=== PATIENT | female | born 1930 | race Caucasian/White ===

== ENCOUNTER 2019-03-08 14:03 | Observation (INO) ==
--- NOTE | 2019-03-08 14:22 | Emergency Department Note ---
ED Disposition Clinical Impression: Weakness generalized, Hypertension, Diabetes mellitus type 2 in obese, Hyperlipidemia, Peripheral vascular disease, Peripheral neuropathy, Depression, Left bundle branch block (LBBB) Disposition: Admitted as Observation Condition on Discharge: Serious - Critical Care Critical Care Time: No Attestation: On , the high probability of a clinically significant, sudden or life threatening deterioration of the following system(s) required my full and direct attention, intervention and personal management. The time I documented below is in addition to time spent performing reported procedures but includes the following listed in this critical care notation. Medical Decision Making - Medical Records Medical records reviewed: Yes: I reviewed the patient's medical records. - Wilian Inquiry Pt receiving controlled substance: No Vital Signs: 03/08/19 14:03 03/08/19 14:50 03/08/19 15:50 Temperature 98.7 F Temperature Source Oral Pulse Rate [Left Radial] 87 69 72 Respiratory Rate 20 Blood Pressure [Right Arm] 211/93 H 180/78 H 151/72 H Blood Pressure Mean [Right Arm] 132 112 98 Blood Pressure Source [Right Arm] Automatic Cuff Blood Pressure Position [Right Arm] Sitting Sitting Sitting 02 Sat by Pulse Oximetry 98 94 L Oxygen Delivery Method Room Air Room Air - Lab Data Lab Results 03/08/19 14:16: WBC 8.2, RBC 3.91 L, Hgb 12.6, Hct 40.1, MCV 102.7 H, MCH 32.1 H , MCHC 31.3 L, RDW 12.6, Plt Count 164, MPV 9.2, Neut % (Auto) 68.8, Lymph % (Auto) 22.2, [place] % (Auto) 6.6, Eos % (Auto) 2.0, Baso % (Auto) 0.3, Neut # (Auto) 5.6, Lymph # (Auto) 1.8, [place] # (Auto) 0.5, Eos # (Auto) 0.2, Baso # (Auto) 0.0 03/08/19 14:16: Sodium 143, Potassium 3.7, Chloride 104, Carbon Dioxide 30, Anion Gap 12.7, BUN 16, Creatinine 0.62, Estimated Creat Clear 36, Estimated GFR 91, Est GFR ( Amer) 110, Glucose 198 H, Calcium 9.2, Total Bilirubin 0.5, AST 7 L, ALT 6 L, Alkaline Phosphatase 44 L, Troponin I < 0.02, Total Protein 7.3, Albumin 3.4, Globulin 3.9 H, Albumin/Globulin Ratio 0.9 L 03/08/19 15:15: Urine Color Yellow, Urine Appearance Clear, Urine pH 5.5, Ur Specific [place] 1.025, Urine Protein Negative, Urine Glucose (UA) Negative, Urine Ketones Negative, Urine Blood Negative, Urine Nitrate Negative, Urine Bilirubin Negative, Urine Urobilinogen 0.2, Ur Leukocyte Esterase Negative, Urine RBC None, Urine WBC Occasional, Ur Squamous Epith Cells None, Urine Bacteria Trace 03/08/19 15:25: Lactate 1.9 Result diagrams: 03/08/19 14:16 03/08/19 14:16 Orders (Tests/Meds): ED MEDICATIONS Discontinued Medications Generic Name Dose Route Start Last Admin Trade Name Freq PRN Reason Stop Dose Admin Ondansetron HCl 4 mg 03/08/19 14:41 03/08/19 14:42 Zofran 4mg/2ml Vial IV 03/08/19 14:42 4 mg ONCE ONE Administration ORDERS Category Date Time Status Blood Culture Stat Micro 03/08/19 15:35 Received EKG Request [ECG Request by /Lion] Stat Y 03/08/19 14:14 Ordered - CT Data CT Scan: Head Time Received: 15:[address] Reviewed: Yes: I have reviewed the patient's CT results Preliminary Findings: Normal/NAD - ECG Data Tracing #1 I reviewed this ECG and interpreted as documented below: Normal Sinus Rhythm: Yes (rate of 72.) Conduction abnormalities present: LBBB General Adult HPI - General Chief complaint: Weakness Stated complaint: Weakness Time Seen by Provider: 03/08/19 14:10 Mode of Arrival: EMS Source of Information: Patient, EMS - History of Present Illness HPI narrative: 88-year old female brought in by EMS per family's request due to and and lethargy for the past 2 days. Onset (ago): day(s) (2) Severity: moderate Consistency: constant Relieving factors: none Exacerbating factors: none Associated symptoms: confusion, headaches - Related Data Home Medications Medication Instructions Recorded Confirmed Aspirin/Dipyridamole [Aggrenox 1 tab PO DAILY 03/08/19 03/08/19 25mg-200mg Capsule] Duloxetine HCl 30 mg PO DAILY 03/08/19 03/08/19 Gabapentin [Gabapentin 300mg Cap] 300 mg PO BID 03/08/19 03/08/19 Glyburide/Metformin HCl 1 tab PO DAILY 03/08/19 03/08/19 [Glyburide-Metformin 5-500 mg] Losartan Potassium 100 mg PO DAILY 03/08/19 03/08/19 Metoprolol Succinate [Toprol XL 50 mg PO DAILY 03/08/19 03/08/19 50mg Tablet] Rosuvastatin Calcium 10 mg PO DAILY 03/08/19 03/08/19 levETIRAcetam [Levetiracetam] 500 mg PO BID 03/08/19 03/08/19 Allergies Allergy/AdvReac Type Severity Reaction Status Date / Time ASPIRIN Allergy Unknown "BLEEDING" Uncoded 05/06/17 14:33 From CELEBREX Allergy Unknown BLEEDING Uncoded 05/06/17 14:33 From MACROBID Allergy Unknown NA-NAUSEA Uncoded 05/06/17 14:33 From PAXIL Allergy Unknown NA-NAUSEA/V Uncoded 05/06/17 14:33 OMITING [facility] History - Hepatitis A Screen Drug use history?: No Attestation statement:: This patient has been screened for Hepatitis A risk factors. I have reviewed the patient's past medical history: Yes Medical History: Reports:: Diabetes Mellitus Type 2, Hypertension Other Surgeries: Yes: Hysterectomy-Total Family Hx:: Unable to obtain ROS Obtained: Yes other (Family had to assist) - Constitutional Constitutional: Reports anorexia, Reports fatigue, Reports lethargy, Reports malaise - Eyes Eyes: Reports system reviewed and no additional complaints, except as docu - ENT Ears, Nose, Mouth, and Throat: Reports system reviewed and no additional complaints, except as docu - Cardiovascular Cardiovascular: Reports system reviewed and no additional complaints, except as docu - Respiratory Respiratory: Yes system reviewed and no additional complaints, except as docu - Gastrointestinal Gastrointestingal: Reports: system reviewed and no additional complaints, except as docu - Genitourinary Male Genitourinary: Reports system reviewed and no additional complaints, except as docu Female Genitourinary: Reports system reviewed and no additional complaints, except as docu - Musculoskeletal Musculoskeletal: Reports system reviewed and no additional complaints, except as docu - Integumentary/Breasts Skin/Breast: Reports system reviewed and no additional complaints, except as docu - Neurologic Neurologic: Reports abnormal gait, Reports abnormal speech, Reports confusion - Endocrine Endocrine: Reports system reviewed and no additional complaints, except as docu - Hematologic/Lymphatic Henatologic/Lymphatic: Reports system reviewed and no additional complaints, except as docu - Allergic/Immunologic Allergic/Immunologic: Reports system reviewed and no additional complaints, except as docu Physical Exam - General General appearance: lethargic - Head Head exam: atraumatic, normocephalic, normal inspection - Eye Eye exam: Present: normal appearance, PERRL, EOMI - ENT ENT exam: Present: normal exam, normal oropharynx, mucous membranes moist - Neck Neck exam: Present: normal inspection, full ROM, trachea midline. Absent: meningismus, lymphadenopathy - Chest Chest inspection: Present: normal inspection, symmetric chest wall rise. Absent: tenderness - Respiratory Respiratory exam: Present: normal lung sounds bilaterally. Absent: respiratory distress - Cardiovascular Cardiovascular exam: Present: regular rate, normal rhythm, normal heart sounds. Absent: JVD - Abdominal Exam Abdominal exam: Present: soft, normal bowel sounds. Absent: distention, tenderness, guarding - Extremities Exam Extremities exam: Present: normal inspection, full ROM, normal capillary refill. Absent: calf tenderness - Back Exam Back exam: Present: normal inspection. Absent: tenderness - Neurological Exam Neurological exam: Present: alert, oriented X3, CN II-XII intact, other (Weakness bilaterally to the lower extremities equal in degree.). Absent: motor sensory deficit - Psychiatric Psychiatric exam: Present: normal affect, normal mood - Skin Skin exam: Present: warm, dry, intact, normal color - Lymphatic Lymphatic Findings: no adenopathy
[2019-03-08 14:34] LABS: Basophils % 0.3 % (0.1-2.0); Eosinophils # 0.2 K/mm3 (0.0-0.4); Hematocrit 40.1 % (37.0-47.0); Hemoglobin 12.6 g/dL (12.2-16.2); Lymphocytes # 1.8 K/mm3 (0.7-4.5); Lymphocytes % 22.2 % (10-50); Mean Corpuscular HGB Conc 31.3 g/dL (31.8-35.4); Mean Corpuscular Volume 102.7 fl (81-99); Mean Platelet Volume 9.2 fl (7.4-10.4); Monocytes # 0.5 K/mm3 (0.1-1.0); Monocytes % 6.6 % (1.7-9.3); Neutrophils # 5.6 K/mm3 (1.8-7.8); Neutrophils % 68.8 % (37.0-80.0); Platelet Count 164 K/mm3 (142-424); Red Blood Count 3.91 M/mm3 (4.20-5.40); Red Cell Distribution Width 12.6 % (11.5-17.5); White Blood Count 8.2 K/mm3 (4.8-10.8)
[2019-03-08 14:50] LABS: Alanine Aminotransferase 6 U/L (12-78); Albumin Level 3.4 gm/dL (3.4-5.0); Albumin/Globulin Ratio 0.9 (1.1-1.8); Alkaline Phosphatase 44 U/L (46-116); Anion Gap 12.7 mEq/L (5-15); Aspartate Amino Transferase 7 U/L (15-37); Bilirubin,Total 0.5 mg/dL (0.2-1.0); Blood Urea Nitrogen 16 mg/dL (7-18); Calcium 9.2 mg/dL (8.5-10.1); Carbon Dioxide 30 mmol/L (21.0-32.0); Chloride 104 mmol/L (98-107); Globulin 3.9 gm/dl (1.3-3.2); Glucose 198 mg/dL (74-106); Sodium 143 mmol/L (136-145); Total Protein,Serum 7.3 gm/dL (6.4-8.2)
[2019-03-08 15:25] LABS: Microscopic, Urine URINE MICROSCOPIC (MICROSCOPIC)
[2019-03-08 15:35] LABS: Appearance,Urine CLEAR (Clear); Bilirubin,Urine Negative (Negative); Blood, Urine Negative (Negative); Color,Urine YELLOW (Yellow); Glucose,Urine (UA) Negative (Negative); Ketones,Urine Negative (Negative); Leukocyte Esterase,Urine Negative (Negative); PH,Urine 5.5 (5.0-8.5); Protein,Urine Negative (Negative); Specific Gravity, Urine 1.025 (1.005-1.030); Urobilinogen,Urine 0.2 EU/dl (0.2)
[2019-03-08 16:05] LABS: Bacteria,Urine Trace /lpf; WBC,Urine Occasional #/hpf (0-3)
--- NOTE | 2019-03-08 17:09 | History & Physical Report ---
*Admission Date: 03/08/19 <PeckNaniEdna 03/08/19 17:42> *Chief complaint: weakness <PeckNaniEdna 03/08/19 17:42> *History of present illness: Ms. Nelson is an 88-year-old female with a history of type 2 diabetes mellitus, cerebral vascular disease, depression, peripheral vascular disease, hyperlipidemia, peptic ulcer disease, seizure disorder, and osteopenia who presented to [facility] emergency room with progressive weakness and inability to walk. She has 2 sitters stay with her and they report they have had to lift her from bed to chair and then push her sit/walker in order to move her around in her home. They have noticed a gradual decline in the last 2 weeks with change in her speech, difficulty with swallowing. and sleeping all of the time. She did vomit this a.m. but normally eats well. She is continent of urine and stool. With evaluation in the emergency room blood pressure was found to be elevated. Chest x-ray and CT of the head showed nothing acute. She was admitted for further evaluation and treatment with care management consultation. <Edna Peck 03/08/19 17:42> [facility] History Medical History: Reports:: Diabetes Mellitus Type 2, Hyperlipidemia, Hyper tension, Peripheral Vascular Disease, Seizures, Ulcer (Peptic) <Edna Peck 03/08/19 17:42> *Have you ever received a pneumonia vaccine?: No <Edna Peck 03/08/19 17:42> *Have you received a flu vaccine this season?: No <Edna Peck 03/08/19 17:42> Comment:: Cerebrovascular disorder; BMI 19.9 or less; osteopenia; skin cancers <Edna Peck 03/08/19 17:42> Laterality Cases: Left: Total Hip Replacement, Bilateral: Cataract <Edna Peck 03/08/19 17:42> Other Surgeries: Yes: Colonoscopy, Hysterectomy-Total, Skin Cancer Excision <Edna Peck 03/08/19 17:42> - *Social History Alcohol Intake: never <Edna Peck 03/08/19 17:42> *Occupational Status:: other <Edna Peck 03/08/19 17:42> Household Members: other <Edna Peck 03/08/19 17:42> *Travel in the last 8 weeks: None <Edna Peck 03/08/19 17:42> Family Hx:: Cancer, Coronary Artery Disease, Diabetes, Stroke <Edna Peck 03/08/19 17:42> Review of Systems - Constitutional Reports lack of energy, Reports malaise, Denies fever(s), Denies headache(s) <Edna Peck 03/08/19 17:42> - Eyes Denies change in vision <Edna Peck 03/08/19 17:42> Comments: Wears glasses <Edna Peck 03/08/19 17:42> - ENT Reports difficulty swallowing, Denies ear pain, Denies nasal congestion, Denies sore throat <Edna Peck 03/08/19 17:42> - *Cardiovascular Denies chest pain, Denies shortness of breath, Denies leg swelling <Edna Peck 03/08/19 17:42> - *Respiratory Denies chest congestion, Denies cough, Denies shortness of breath <Edna Peck 03/08/19 17:42> - *Gastrointestinal Reports abdominal pain, Reports vomiting (Once this a.m.), Denies coffee ground vomit, Denies constipation, Denies bright, red blood in stools, Denies nausea <Edna Peck 03/08/19 17:42> - *Genitourinary Denies urinary incontinence <Edna Peck 03/08/19 17:42> - *Musculoskeletal Reports decreased muscle mass, Reports muscle weakness, Denies joint pain <Edna Peck 03/08/19 17:42> Comments: Has not really walked in about 2 weeks. He has taken to sitters to get her out of bed into her wheelchair/walker. They roll around throughout the house for meals and for her to go to the bathroom. <Edna Peck 03/08/19 17:42> - *Neurologic Reports abnormal walking, Reports abnormal speech, Reports confusion, Reports frequent falls, Denies seizure-like activity, Denies seizure-like activity <Edna Peck 03/08/19 17:42> Comments: She has wanted to sleep most of the time. Will go to bed about 9 PM and wake up about 11 in the morning <PeckEdna - 03/08/19 17:42> Meds Home Medications Medication Instructions Recorded Confirmed Type Aspirin/Dipyridamole [Aggrenox 1 tab PO DAILY 03/08/19 03/08/19 History 25mg-200mg Capsule] Duloxetine HCl 30 mg PO DAILY 03/08/19 03/08/19 History Gabapentin [Gabapentin 300mg Cap] 300 mg PO BID 03/08/19 03/08/19 History Glyburide/Metformin HCl 1 tab PO DAILY 03/08/19 03/08/19 History [Glyburide-Metformin 5-500 mg] Losartan Potassium 100 mg PO DAILY 03/08/19 03/08/19 History Metoprolol Succinate [Toprol XL 50 mg PO DAILY 03/08/19 03/08/19 History 50mg Tablet] Rosuvastatin Calcium 10 mg PO DAILY 03/08/19 03/08/19 History levETIRAcetam [Levetiracetam] 500 mg PO BID 03/08/19 03/08/19 History <Aniket Cummings - 03/08/19 18:01> Allergies Allergy/AdvReac Type Severity Reaction Status Date / Time ASPIRIN Allergy Unknown "BLEEDING" Uncoded 05/06/17 14:33 From CELEBREX Allergy Unknown BLEEDING Uncoded 05/06/17 14:33 From MACROBID Allergy Unknown NA-NAUSEA Uncoded 05/06/17 14:33 From PAXIL Allergy Unknown NA-NAUSEA/V Uncoded 05/06/17 14:33 OMITING <Aniket Cummings - 03/08/19 18:01> Exam Vital signs and Labs for Last 24 Hours: Temp Pulse Resp BP Pulse Ox 98 F 77 18 155/85 H 96 03/08/19 17:16 03/08/19 17:16 03/08/19 17:16 03/08/19 17:16 03/08/19 16:58 Laboratory Results - last 24 hr 03/08/19 14:16: WBC 8.2, RBC 3.91 L, Hgb 12.6, Hct 40.1, MCV 102.7 H, MCH 32.1 H , MCHC 31.3 L, RDW 12.6, Plt Count 164, MPV 9.2, Neut % (Auto) 68.8, Lymph % (Auto) 22.2, [place] % (Auto) 6.6, Eos % (Auto) 2.0, Baso % (Auto) 0.3, Neut # (Auto) 5.6, Lymph # (Auto) 1.8, [place] # (Auto) 0.5, Eos # (Auto) 0.2, Baso # (Auto) 0.0 03/08/19 14:16: Sodium 143, Potassium 3.7, Chloride 104, Carbon Dioxide 30, Anion Gap 12.7, BUN 16, Creatinine 0.62, Estimated Creat Clear 36, Estimated GFR 91, Est GFR ( Amer) 110, Glucose 198 H, Calcium 9.2, Total Bilirubin 0.5, AST 7 L, ALT 6 L, Alkaline Phosphatase 44 L, Troponin I < 0.02, Total Protein 7.3, Albumin 3.4, Globulin 3.9 H, Albumin/Globulin Ratio 0.9 L 03/08/19 14:26: TSH 2.82 03/08/19 15:15: Urine Color Yellow, Urine Appearance Clear, Urine pH 5.5, Ur Specific [place] 1.025, Urine Protein Negative, Urine Glucose (UA) Negative, Urine Ketones Negative, Urine Blood Negative, Urine Nitrate Negative, Urine Bilirubin Negative, Urine Urobilinogen 0.2, Ur Leukocyte Esterase Negative, Urine RBC None, Urine WBC Occasional, Ur Squamous Epith Cells None, Urine Bacteria Trace 03/08/19 15:25: Lactate 1.9 <ZoilaAniket angela - 03/08/19 18:01> Temp Pulse Resp BP Pulse Ox 98.7 F 72 20 151/72 H 94 L 03/08/19 14:03 03/08/19 15:50 03/08/19 14:03 03/08/19 15:50 03/08/19 14:50 Laboratory Results - last 24 hr 03/08/19 14:16: WBC 8.2, RBC 3.91 L, Hgb 12.6, Hct 40.1, MCV 102.7 H, MCH 32.1 H , MCHC 31.3 L, RDW 12.6, Plt Count 164, MPV 9.2, Neut % (Auto) 68.8, Lymph % (Auto) 22.2, [place] % (Auto) 6.6, Eos % (Auto) 2.0, Baso % (Auto) 0.3, Neut # (Auto) 5.6, Lymph # (Auto) 1.8, [place] # (Auto) 0.5, Eos # (Auto) 0.2, Baso # (Auto) 0.0 03/08/19 14:16: Sodium 143, Potassium 3.7, Chloride 104, Carbon Dioxide 30, Anion Gap 12.7, BUN 16, Creatinine 0.62, Estimated Creat Clear 36, Estimated GFR 91, Est GFR ( Amer) 110, Glucose 198 H, Calcium 9.2, Total Bilirubin 0.5, AST 7 L, ALT 6 L, Alkaline Phosphatase 44 L, Troponin I < 0.02, Total Protein 7.3, Albumin 3.4, Globulin 3.9 H, Albumin/Globulin Ratio 0.9 L 03/08/19 14:26: TSH 2.82 03/08/19 15:15: Urine Color Yellow, Urine Appearance Clear, Urine pH 5.5, Ur Specific [place] 1.025, Urine Protein Negative, Urine Glucose (UA) Negative, Urine Ketones Negative, Urine Blood Negative, Urine Nitrate Negative, Urine Bilirubin Negative, Urine Urobilinogen 0.2, Ur Leukocyte Esterase Negative, Urine RBC None, Urine WBC Occasional, Ur Squamous Epith Cells None, Urine Bacteria Trace 03/08/19 15:25: Lactate 1.9 <Edna Peck - 03/08/19 17:42> I & O for Last 24 hours: Intake & Output 03/06/19 03/07/19 03/08/19 03/09/19 11:59 11:59 11:59 11:59 Weight 114 lb 7 oz <Aniket Cummings - 03/08/19 18:01> Intake & Output 03/06/19 03/07/19 03/08/19 03/09/19 11:59 11:59 11:59 11:59 Weight 125 lb <Edna Peck - 03/08/19 17:42> Radiology Reports for the Last 24 Hours: Chest x-ray 03/08/2019 IMPRESSION: No acute findings. CT of the head 03/08/2019 IMPRESSION: No acute intracranial finding <Edna Peck 03/08/19 17:42> - Constitutional no acute distress <Edna Peck 03/08/19 17:42> Comments: Lying comfortably on ER stretcher in the emergency room <Edna Peck 03/08/19 17:42> - *Routine HEENT Exam Head: Present: normocephalic, atraumatic <Edna Peck 03/08/19 17:42> Eye: Present: PERRL. Absent: conjunctival icterus, scleral injection, conjunctivae pink <Edna Peck 03/08/19 17:42> ENT: Present: mucous membranes dry <Edna Peck 03/08/19 17:42> Comments: Tongue is coated <Edna Peck 03/08/19 17:42> - *Routine Neck Exam Present: supple, full ROM. Absent: carotid bruit, lymphadenopathy, thyromegaly <Edna Peck 03/08/19 17:42> - *Routine Respiratory Exam Present: CTA bilaterally (Anteriorly and posteriorly) <Edna Peck 03/08/19 17:42> - *Routine Cardiovascular Exam Present: RRR <Edna Peck 03/08/19 17:42> Comments: Monitor shows sinus rhythm in the 70s <Edna Peck 03/08/19 17:42> - *Routine Abdominal Exam Present: soft, normoactive bowel sounds. Absent: tenderness, distended <Edna Peck 03/08/19 17:42> Comments: Thin <Edna Peck 03/08/19 17:42> - *Routine Extremities Exam Present: full ROM. Absent: edema, calf tenderness <Edna Peck 03/08/19 17:42> - *Routine Skin Exam Present: dry, pallor <Edna Peck 03/08/19 17:42> - *Routine Neurological Exam Present: alert, CN II-XII intact, moving all extremities. Absent: facial asymmetry, normal speech (Speech is slow with poor enunciation) <Edna Peck 03/08/19 17:42> Assessment and Plan (1) Hypertension Current visit: Yes Status: Acute Category: Medical Code(s): I10 - Essential (primary) hypertension (2) Cerebrovascular disease Current visit: Yes Status: Chronic Category: Medical Code(s): I67.9 - Cerebrovascular disease, unspecified (3) Somnolence Current visit: Yes Status: Acute Category: Medical Code(s): R40.0 - Somnolence (4) Dysphagia Current visit: Yes Status: Acute Category: Medical Code(s): R13.10 - Dysphagia, unspecified (5) Dysarthria Current visit: Yes Status: Acute Category: Medical Code(s): R47.1 - Dysarthria and anarthria (6) Depression Current visit: Yes Status: Chronic Category: Medical Code(s): F32.9 - Major depressive disorder, single episode, unspecified (7) Diabetes mellitus type 2 in obese Current visit: Yes Status: Chronic Category: Medical Code(s): E11.69 - Type 2 diabetes mellitus with other specified complication; E66.9 - Obesity, unspecified (8) Hyperlipidemia Current visit: Yes Status: Chronic Category: Medical Code(s): E78.5 - Hyperlipidemia, unspecified (9) Peripheral neuropathy Current visit: Yes Status: Chronic Category: Medical Code(s): G62.9 - Polyneuropathy, unspecified (10) Peripheral vascular disease Current visit: Yes Status: Chronic Category: Medical Code(s): I73.9 - Peripheral vascular disease, unspecified (11) Weakness generalized Current visit: Yes Status: Chronic Category: Medical Code(s): R53.1 - Weakness <Aniket Cummings - 03/08/19 18:01> (1) Hypertension Current visit: Yes Status: Acute Category: Medical Code(s): I10 - Essential (primary) hypertension (2) Cerebrovascular disease Current visit: Yes Status: Chronic Category: Medical Code(s): I67.9 - Cerebrovascular disease, unspecified (3) Somnolence Current visit: Yes Status: Acute Category: Medical Code(s): R40.0 - Somnolence (4) Dysphagia Current visit: Yes Status: Acute Category: Medical Code(s): R13.10 - Dysphagia, unspecified (5) Dysarthria Current visit: Yes Status: Acute Category: Medical Code(s): R47.1 - Dysarthria and anarthria (6) Depression Current visit: Yes Status: Chronic Category: Medical Code(s): F32.9 - Major depressive disorder, single episode, unspecified (7) Diabetes mellitus type 2 in obese Current visit: Yes Status: Chronic Category: Medical Code(s): E11.69 - Type 2 diabetes mellitus with other specified complication; E66.9 - Obesity, unspecified (8) Hyperlipidemia Current visit: Yes Status: Chronic Category: Medical Code(s): E78.5 - Hyperlipidemia, unspecified (9) Peripheral neuropathy Current visit: Yes Status: Chronic Category: Medical Code(s): G62.9 - Polyneuropathy, unspecified (10) Peripheral vascular disease Current visit: Yes Status: Chronic Category: Medical Code(s): I73.9 - Peripheral vascular disease, unspecified (11) Weakness generalized Current visit: Yes Status: Chronic Category: Medical Code(s): R53.1 - Weakness <Edna Peck - 03/08/19 17:05> - Assessment and plan all Dx Assessment and Plan for all problems:: Patient seen and examined. Concur with above assessment and plan. SHe will need consideration for LTC placement. <Aniket Cummings - 03/08/19 18:01> Some of home meds have been ordered to include sliding scale insulin before meals and at bedtime. Speech therapy, Occupational Therapy, and physical therapy consults. Care management consult as well. Will monitor blood pressure. <Edna Peck - 03/08/19 17:42>
[2019-03-09 07:11] LABS: Basophils % 0.4 % (0.1-2.0); Eosinophils # 0.2 K/mm3 (0.0-0.4); Eosinophils % 2.4 % (0.1-12.0); Hematocrit 34.4 % (37.0-47.0); Lymphocytes # 2.7 K/mm3 (0.7-4.5); Lymphocytes % 33.4 % (10-50); Mean Corpuscular HGB Conc 32.1 g/dL (31.8-35.4); Mean Corpuscular Volume 99.8 fl (81-99); Mean Platelet Volume 9.1 fl (7.4-10.4); Monocytes # 0.6 K/mm3 (0.1-1.0); Monocytes % 8.1 % (1.7-9.3); Neutrophils # 4.4 K/mm3 (1.8-7.8); Neutrophils % 55.7 % (37.0-80.0); Platelet Count 151 K/mm3 (142-424); Red Blood Count 3.45 M/mm3 (4.20-5.40); Red Cell Distribution Width 12.6 % (11.5-17.5); White Blood Count 7.9 K/mm3 (4.8-10.8)
[2019-03-09 07:32] LABS: Hemoglobin 11.1 g/dL (12.2-16.2)
[2019-03-09 07:35] LABS: Albumin Level 3.2 gm/dL (3.4-5.0); Anion Gap 13.7 mEq/L (5-15); Bilirubin,Total 0.5 mg/dL (0.2-1.0); Calcium 8.7 mg/dL (8.5-10.1); Chol/HDL Ratio 2.7 (1-3.5); Globulin 3.3 gm/dl (1.3-3.2); Phosphorous 3.7 mg/dL (2.4-4.9); Total Protein,Serum 6.5 gm/dL (6.4-8.2)
--- NOTE | 2019-03-09 08:23 | Progress Note ---
<Edna Peck - Last Filed: 03/09/19 08:18> Internal Medicine - PN: Subj *Date: 03/09/19 *Time: 08:18 Interval history: Per nursing: Patient did choke on some of her food last evening. She took her pills without difficulty. She had a decrease in urinary output and IV fluids are at 75 NR now. Patient indicates back of her neck hurts. She denies breathing difficulties. She cannot remember if she slept well or not. Currently she is n.p.o. for speech eval Exam Vital signs and Labs for Last 24 Hours: Temp Pulse Resp BP Pulse Ox 98.0 F 68 17 167/62 H 96 03/09/19 07:45 03/09/19 07:45 03/09/19 07:45 03/09/19 07:45 03/09/19 07:45 Laboratory Results - last 24 hr 03/08/19 14:16: WBC 8.2, RBC 3.91 L, Hgb 12.6, Hct 40.1, MCV 102.7 H, MCH 32.1 H , MCHC 31.3 L, RDW 12.6, Plt Count 164, MPV 9.2, Neut % (Auto) 68.8, Lymph % (Auto) 22.2, Stearns % (Auto) 6.6, Eos % (Auto) 2.0, Baso % (Auto) 0.3, Neut # (Auto) 5.6, Lymph # (Auto) 1.8, Stearns # (Auto) 0.5, Eos # (Auto) 0.2, Baso # (Auto) 0.0 03/08/19 14:16: Sodium 143, Potassium 3.7, Chloride 104, Carbon Dioxide 30, Anion Gap 12.7, BUN 16, Creatinine 0.62, Estimated Creat Clear 36, Estimated GFR 91, Est GFR ( Amer) 110, Glucose 198 H, Calcium 9.2, Total Bilirubin 0.5, AST 7 L, ALT 6 L, Alkaline Phosphatase 44 L, Troponin I < 0.02, Total Protein 7.3, Albumin 3.4, Globulin 3.9 H, Albumin/Globulin Ratio 0.9 L 03/08/19 14:26: TSH 2.82 03/08/19 15:15: Urine Color Yellow, Urine Appearance Clear, Urine pH 5.5, Ur Specific [place] 1.025, Urine Protein Negative, Urine Glucose (UA) Negative, Urine Ketones Negative, Urine Blood Negative, Urine Nitrate Negative, Urine Bilirubin Negative, Urine Urobilinogen 0.2, Ur Leukocyte Esterase Negative, Urine RBC None, Urine WBC Occasional, Ur Squamous Epith Cells None, Urine Bacteria Trace 03/08/19 15:25: Lactate 1.9 03/08/19 21:14: POC Glucose 140 H 03/09/19 06:30: POC Glucose 99 03/09/19 06:31: WBC 7.9, RBC 3.45 L, Hgb 11.1 L D, Hct 34.4 L, MCV 99.8 H, MCH 32.1 H, MCHC 32.1, RDW 12.6, Plt Count 151, MPV 9.1, Neut % (Auto) 55.7, Lymph % (Auto) 33.4, Stearns % (Auto) 8.1, Eos % (Auto) 2.4, Baso % (Auto) 0.4, Neut # (Auto) 4.4, Lymph # (Auto) 2.7, Stearns # (Auto) 0.6, Eos # (Auto) 0.2, Baso # (Auto) 0.0 03/09/19 06:31: Sodium 143, Potassium 3.7, Chloride 104, Carbon Dioxide 29, Anion Gap 13.7, BUN 16, Creatinine 0.45 L D, Estimated Creat Clear 32, Estimated GFR 132, Est GFR ( Amer) 160 D, Glucose 105 D, Calcium 8.7, Phosphorus 3.7, Magnesium 1.5, Total Bilirubin 0.5, AST 8 L, ALT 7 L, Alkaline Phosphatase 37 L, Total Protein 6.5, Albumin 3.2 L, Globulin 3.3 H, Albumin/Globulin Ratio 1.0 L, Triglycerides 139, Cholesterol 97 L, LDL Cholesterol 33, VLDL Cholesterol 28, HDL Cholesterol 36, Cholesterol/HDL Ratio 2.7 I & O for Last 24 hours: Intake & Output 03/06/19 03/07/19 03/08/19 03/09/19 11:59 11:59 11:59 11:59 Intake Total 130 / 130 Output Total 900 / 900 Balance -770 / -770 Weight 112 lb 2 oz - Constitutional no acute distress Comments: Patient wide-awake this morning and answers questions readily. Speech is slow and slurred - *Routine Respiratory Exam Present: CTA bilaterally (Anteriorly and posteriorly) - *Routine Cardiovascular Exam Present: RRR - *Routine Abdominal Exam Present: soft, normoactive bowel sounds. Absent: tenderness, distended - *Routine Extremities Exam Absent: edema, calf tenderness - *Routine Neurological Exam Present: alert. Absent: normal speech (Slow and slurred) Assessment and Plan (1) Hypertension Current visit: Yes Status: Acute Category: Medical Code(s): I10 - Essential (primary) hypertension (2) Cerebrovascular disease Current visit: Yes Status: Chronic Category: Medical Code(s): I67.9 - Cerebrovascular disease, unspecified (3) Somnolence Current visit: Yes Status: Acute Category: Medical Code(s): R40.0 - Somnolence (4) Dysphagia Current visit: Yes Status: Acute Category: Medical Code(s): R13.10 - Dysphagia, unspecified (5) Dysarthria Current visit: Yes Status: Acute Category: Medical Code(s): R47.1 - Dysarthria and anarthria (6) Depression Current visit: Yes Status: Chronic Category: Medical Code(s): F32.9 - Major depressive disorder, single episode, unspecified (7) Diabetes mellitus type 2 in obese Current visit: Yes Status: Chronic Category: Medical Code(s): E11.69 - Type 2 diabetes mellitus with other specified complication; E66.9 - Obesity, unspecified (8) Hyperlipidemia Current visit: Yes Status: Chronic Category: Medical Code(s): E78.5 - Hyperlipidemia, unspecified (9) Peripheral neuropathy Current visit: Yes Status: Chronic Category: Medical Code(s): G62.9 - Polyneuropathy, unspecified (10) Peripheral vascular disease Current visit: Yes Status: Chronic Category: Medical Code(s): I73.9 - Peripheral vascular disease, unspecified (11) Weakness generalized Current visit: Yes Status: Chronic Category: Medical Code(s): R53.1 - Weakness - Assessment and plan all Dx Assessment and Plan for all problems:: For PT, OT, and speech therapy eval. Will remove Guerrero catheter. Will obtain an MRI of the brain today. Care management working on rehab and disposition <Aniket Cummings - Last Filed: 03/09/19 11:23> Internal Medicine - PN: Subj *Date: 03/09/19 *Time: 11:21 Exam Vital signs and Labs for Last 24 Hours: Temp Pulse Resp BP Pulse Ox 98.0 F 68 17 167/62 H 96 03/09/19 07:45 03/09/19 07:45 03/09/19 07:45 03/09/19 07:45 03/09/19 07:45 Laboratory Results - last 24 hr 03/08/19 14:16: WBC 8.2, RBC 3.91 L, Hgb 12.6, Hct 40.1, MCV 102.7 H, MCH 32.1 H , MCHC 31.3 L, RDW 12.6, Plt Count 164, MPV 9.2, Neut % (Auto) 68.8, Lymph % (Auto) 22.2, Stearns % (Auto) 6.6, Eos % (Auto) 2.0, Baso % (Auto) 0.3, Neut # (Auto) 5.6, Lymph # (Auto) 1.8, Stearns # (Auto) 0.5, Eos # (Auto) 0.2, Baso # (Auto) 0.0 03/08/19 14:16: Sodium 143, Potassium 3.7, Chloride 104, Carbon Dioxide 30, Anion Gap 12.7, BUN 16, Creatinine 0.62, Estimated Creat Clear 36, Estimated GFR 91, Est GFR ( Amer) 110, Glucose 198 H, Calcium 9.2, Total Bilirubin 0.5, AST 7 L, ALT 6 L, Alkaline Phosphatase 44 L, Troponin I < 0.02, Total Protein 7.3, Albumin 3.4, Globulin 3.9 H, Albumin/Globulin Ratio 0.9 L 03/08/19 14:26: TSH 2.82 03/08/19 15:15: Urine Color Yellow, Urine Appearance Clear, Urine pH 5.5, Ur Specific [place] 1.025, Urine Protein Negative, Urine Glucose (UA) Negative, Urine Ketones Negative, Urine Blood Negative, Urine Nitrate Negative, Urine Bilirubin Negative, Urine Urobilinogen 0.2, Ur Leukocyte Esterase Negative, Urine RBC None, Urine WBC Occasional, Ur Squamous Epith Cells None, Urine Bacteria Trace 03/08/19 15:25: Lactate 1.9 03/08/19 21:14: POC Glucose 140 H 03/09/19 06:30: POC Glucose 99 03/09/19 06:31: WBC 7.9, RBC 3.45 L, Hgb 11.1 L D, Hct 34.4 L, MCV 99.8 H, MCH 32.1 H, MCHC 32.1, RDW 12.6, Plt Count 151, MPV 9.1, Neut % (Auto) 55.7, Lymph % (Auto) 33.4, Stearns % (Auto) 8.1, Eos % (Auto) 2.4, Baso % (Auto) 0.4, Neut # (Auto) 4.4, Lymph # (Auto) 2.7, Stearns # (Auto) 0.6, Eos # (Auto) 0.2, Baso # (Auto) 0.0 03/09/19 06:31: Sodium 143, Potassium 3.7, Chloride 104, Carbon Dioxide 29, Anion Gap 13.7, BUN 16, Creatinine 0.45 L D, Estimated Creat Clear 32, Estimated GFR 132, Est GFR ( Amer) 160 D, Glucose 105 D, Calcium 8.7, Phosphorus 3.7, Magnesium 1.5, Total Bilirubin 0.5, AST 8 L, ALT 7 L, Alkaline Phosphatase 37 L, Total Protein 6.5, Albumin 3.2 L, Globulin 3.3 H, Albumin/Globulin Ratio 1.0 L, Triglycerides 139, Cholesterol 97 L, LDL Cholesterol 33, VLDL Cholesterol 28, HDL Cholesterol 36, Cholesterol/HDL Ratio 2.7 I & O for Last 24 hours: Intake & Output 03/06/19 03/07/19 03/08/19 03/09/19 11:59 11:59 11:59 11:59 Intake Total 130 / 130 Output Total 900 / 900 Balance -770 / -770 Weight 112 lb 2 oz Assessment and Plan (1) Hypertension Current visit: Yes Status: Acute Category: Medical Code(s): I10 - Essential (primary) hypertension (2) Cerebrovascular disease Current visit: Yes Status: Chronic Category: Medical Code(s): I67.9 - Cerebrovascular disease, unspecified (3) Somnolence Current visit: Yes Status: Acute Category: Medical Code(s): R40.0 - Somnolence (4) Dysphagia Current visit: Yes Status: Acute Category: Medical Code(s): R13.10 - Dysphagia, unspecified (5) Dysarthria Current visit: Yes Status: Acute Category: Medical Code(s): R47.1 - Dysarthria and anarthria (6) Depression Current visit: Yes Status: Chronic Category: Medical Code(s): F32.9 - Major depressive disorder, single episode, unspecified (7) Diabetes mellitus type 2 in obese Current visit: Yes Status: Chronic Category: Medical Code(s): E11.69 - Type 2 diabetes mellitus with other specified complication; E66.9 - Obesity, unspecified (8) Hyperlipidemia Current visit: Yes Status: Chronic Category: Medical Code(s): E78.5 - Hyperlipidemia, unspecified (9) Peripheral neuropathy Current visit: Yes Status: Chronic Category: Medical Code(s): G62.9 - Polyneuropathy, unspecified (10) Peripheral vascular disease Current visit: Yes Status: Chronic Category: Medical Code(s): I73.9 - Peripheral vascular disease, unspecified (11) Weakness generalized Current visit: Yes Status: Chronic Category: Medical Code(s): R53.1 - Weakness - Assessment and plan all Dx Assessment and Plan for all problems:: Patient seen and examined. Speech is slow and a bit slurred. Concur with assessment and plan as outlined.
--- NOTE | 2019-03-09 09:08 | Pharmacy Consult Notes ---
[facility] Pharmacy VTE Monitoring - Patient Demographics Admission date: 03/08/19 Report Date: 03/09/19 Time: 09:08 Allergies/Adverse Reactions: Patient Allergies ASPIRIN Allergy (Unknown, Uncoded 05/06/17 14:33) "BLEEDING" From CELEBREX Allergy (Unknown, Uncoded 05/06/17 14:33) BLEEDING From MACROBID Allergy (Unknown, Uncoded 05/06/17 14:33) NA-NAUSEA From PAXIL Allergy (Unknown, Uncoded 05/06/17 14:33) NA-NAUSEA/VOMITING Height: 1.7 m Weight: 50.859 kg Patient Problems: Current Active Problems Weakness generalized (Chronic) Hypertension (Acute) Diabetes mellitus type 2 in obese (Chronic) Hyperlipidemia (Chronic) Peripheral vascular disease (Chronic) Peripheral neuropathy (Chronic) Depression (Chronic) Left bundle branch block (LBBB) (Acute) Cerebrovascular disease (Chronic) Somnolence (Acute) Dysphagia (Acute) Dysarthria (Acute) - VTE Risk Labs: VTE Related Lab Results Hgb 11.1 g/dL (12.2-16.2) L D 03/09/19 06:31 Hct 34.4 % (37.0-47.0) L 03/09/19 06:31 Plt Count 151 K/mm3 (142-424) 03/09/19 06:31 BUN 16 mg/dL (7-18) 03/09/19 06:31 Creatinine 0.45 mg/dL (0.55-1.02) L D 03/09/19 06:31 Estimated Creat Clear 32 mL/min (50-200) 03/09/19 06:31 VTE Score: 3 VTE Risk Level: Low Risk - Prophylaxis VTE Prophylaxis Ordered?: Yes Types of VTE Prophylaxis: TEDS Knee High Location of Applied Device: Bilateral Lower Extremeties - VTE Diagnosis Confirmed Treatment or plan recommended: Continue Current Treatment
--- NOTE | 2019-03-09 16:55 | Electrocardiograph Report ---
APPROVED REPORT Exam: Resting ECG HR:72 bpm ECG Measurements Heart Rate 72 AXES CA 158 P 81 QRSd 130 QRS 57 QT 448 T77 QTc 490 <Conclusion> Normal sinus rhythm Left bundle branch block Abnormal ECG Electronically signed by : Michael Gold, 03/09/2019 16:54:54
--- NOTE | 2019-03-10 08:03 | Progress Note ---
<Edna Peck - Last Filed: 03/10/19 08:00> Internal Medicine - PN: Subj *Date: 03/10/19 *Time: 08:00 Interval history: Sitter stayed with patient throughout the night. She states she became nauseated and received Phenergan early in the night. She did not vomit. She slept until about 4:30 AM. She then awakened and was confused and trying to get out of bed. She received a dose of Vistaril and mittens were placed because she was constantly trying to pick and remove her IV. This a.m. patient states her belly does not feel very good. She is somewhat nauseated. She does not want to eat any breakfast. She does not want her sitter in the room. She is waiting for Dr. Cummings. She denies shortness of breath and chest pain. Patient was unable to void and Guerrero catheter was placed. 250 cc obtained. Bowels have not moved since 03/07. Head PT, OT, and speech therapy evaluation yesterday. Was placed on mechanical soft diet. Exam Vital signs and Labs for Last 24 Hours: Temp Pulse Resp BP Pulse Ox 98.1 F 74 17 149/67 H 94 L 03/10/19 07:52 03/10/19 07:52 03/10/19 07:52 03/10/19 07:52 03/10/19 07:52 Laboratory Results - last 24 hr 03/09/19 10:49: POC Glucose 210 H 03/09/19 16:46: POC Glucose 194 H 03/09/19 20:05: POC Glucose 226 H 03/09/19 21:35: Urine Color Yellow, Urine Appearance Clear, Urine pH 5.5, Ur Specific Min[place] >= 1.030, Urine Protein 1+, Urine Glucose (UA) Negative, Urine Ketones 1+, Urine Blood Negative, Urine Nitrate Negative, Urine Bilirubin Negative, Urine Urobilinogen 0.2, Ur Leukocyte Esterase Negative, Urine WBC 3-5, Ur Squamous Epith Cells 3-5, Urine Bacteria Trace 03/10/19 05:44: POC Glucose 152 H I & O for Last 24 hours: Intake & Output 03/07/19 03/08/19 03/09/19 03/10/19 11:59 11:59 11:59 11:59 Intake Total 130 / 130 1736 / 1736 Output Total 900 / 900 350 / 350 Balance -770 / -770 1386 / 1386 Weight 112 lb 2 oz 112 lb 2 oz Radiology Reports for the Last 24 Hours: 03/09/2019 MRI of the head IMPRESSION: 1. No acute intracranial findings. 2. Atrophy with chronic ischemic changes. 3. 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 MRI of the cervical spine may be of further value - Constitutional no acute distress, thin Comments: Slightly agitated. Indicates that she wants the sitter out of the room. - *Routine Respiratory Exam Present: CTA bilaterally (Anteriorly and posteriorly) - *Routine Cardiovascular Exam Present: RRR - *Routine Abdominal Exam Present: soft, normoactive bowel sounds. Absent: tenderness, distended - *Routine Extremities Exam Absent: edema, calf tenderness - *Routine Neurological Exam Present: alert - Routine Psychiatric Exam Present: cooperative Assessment and Plan (1) Hypertension Current visit: Yes Status: Acute Category: Medical Code(s): I10 - Essential (primary) hypertension (2) Cerebrovascular disease Current visit: Yes Status: Chronic Category: Medical Code(s): I67.9 - Cerebrovascular disease, unspecified (3) Somnolence Current visit: Yes Status: Acute Category: Medical Code(s): R40.0 - Somnolence (4) Dysphagia Current visit: Yes Status: Acute Category: Medical Code(s): R13.10 - Dysph agia, unspecified (5) Dysarthria Current visit: Yes Status: Acute Category: Medical Code(s): R47.1 - Dysarthria and anarthria (6) Depression Current visit: Yes Status: Chronic Category: Medical Code(s): F32.9 - Major depressive disorder, single episode, unspecified (7) Diabetes mellitus type 2 in obese Current visit: Yes Status: Chronic Category: Medical Code(s): E11.69 - Type 2 diabetes mellitus with other specified complication; E66.9 - Obesity, unspecified (8) Hyperlipidemia Current visit: Yes Status: Chronic Category: Medical Code(s): E78.5 - Hyperlipidemia, unspecified (9) Peripheral neuropathy Current visit: Yes Status: Chronic Category: Medical Code(s): G62.9 - Polyneuropathy, unspecified (10) Peripheral vascular disease Current visit: Yes Status: Chronic Category: Medical Code(s): I73.9 - Peripheral vascular disease, unspecified (11) Weakness generalized Current visit: Yes Status: Chronic Category: Medical Code(s): R53.1 - Weakness - Assessment and plan all Dx Assessment and Plan for all problems:: Care management noted. Apparently she has a place in personal care at [place] with sitters [id number]. May be discharged today. Will start MiraLAX. <Aniket Cummings - Last Filed: 03/10/19 09:47> Internal Medicine - PN: Subj *Date: 03/10/19 *Time: 09:41 Exam Vital signs and Labs for Last 24 Hours: Temp Pulse Resp BP Pulse Ox 98.1 F 74 17 149/67 H 94 L 03/10/19 07:52 03/10/19 07:52 03/10/19 07:52 03/10/19 07:52 03/10/19 07:52 Laboratory Results - last 24 hr 03/09/19 10:49: POC Glucose 210 H 03/09/19 16:46: POC Glucose 194 H 03/09/19 20:05: POC Glucose 226 H 03/09/19 21:35: Urine Color Yellow, Urine Appearance Clear, Urine pH 5.5, Ur Specific Min[place] >= 1.030, Urine Protein 1+, Urine Glucose (UA) Negative, Urine Ketones 1+, Urine Blood Negative, Urine Nitrate Negative, Urine Bilirubin Negative, Urine Urobilinogen 0.2, Ur Leukocyte Esterase Negative, Urine WBC 3-5, Ur Squamous Epith Cells 3-5, Urine Bacteria Trace 03/10/19 05:44: POC Glucose 152 H I & O for Last 24 hours: Intake & Output 03/07/19 03/08/19 03/09/19 03/10/19 11:59 11:59 11:59 11:59 Intake Total 130 / 130 1736 / 1736 Output Total 900 / 900 350 / 350 Balance -770 / -770 1386 / 1386 Weight 112 lb 2 oz 112 lb 2 oz Assessment and Plan (1) Hypertension Current visit: Yes Status: Acute Category: Medical Code(s): I10 - Essential (primary) hypertension (2) Cerebrovascular disease Current visit: Yes Status: Chronic Category: Medical Code(s): I67.9 - Cerebrovascular disease, unspecified (3) Somnolence Current visit: Yes Status: Acute Category: Medical Code(s): R40.0 - Somnolence (4) Dysphagia Current visit: Yes Status: Acute Category: Medical Code(s): R13.10 - Dysphagia, unspecified (5) Dysarthria Current visit: Yes Status: Acute Category: Medical Code(s): R47.1 - Dysarthria and anarthria (6) Depression Current visit: Yes Status: Chronic Category: Medical Code(s): F32.9 - Major depressive disorder, single episode, unspecified (7) Diabetes mellitus type 2 in obese Current visit: Yes Status: Chronic Category: Medical Code(s): E11.69 - Type 2 diabetes mellitus with other specified complication; E66.9 - Obesity, unspecified (8) Hyperlipidemia Current visit: Yes Status: Chronic Category: Medical Code(s): E78.5 - Hyperlipidemia, unspecified (9) Peripheral neuropathy Current visit: Yes Status: Chronic Category: Medical Code(s): G62.9 - Polyneuropathy, unspecified (10) Peripheral vascular disease Current visit: Yes Status: Chronic Category: Medical Code(s): I73.9 - Peripheral vascular disease, unspecified (11) Weakness generalized Current visit: Yes Status: Chronic Category: Medical Code(s): R53.1 - Weakness - Assessment and plan all Dx Assessment and Plan for all problems:: Patient seen and examined this morning. She has calm down some but is still confused. She is refusing to eat but denies abdominal pain. Discharge plan is for her to go to personal care at [place] although she is not yet ready for discharge. Her acute delerium is likely from .Will check acute abdominal series today because of her constipation and nausea. Continue PT
--- NOTE | 2019-03-11 08:08 | Progress Note ---
<Tamar Rosario - Last Filed: 03/11/19 08:05> Internal Medicine - PN: Subj *Date: 03/11/19 *Time: 08:05 Interval history: Sitter stayed with patient throughout the night. She states she had a very bad night. She was confused and did not seem to feel well. She still has mittens in place so she could not remove her IV. She finally went to sleep and is still sleeping this am. Exam Vital signs and Labs for Last 24 Hours: Temp Pulse Resp BP Pulse Ox 98.7 F 75 17 182/67 H 97 03/11/19 04:00 03/11/19 04:00 03/11/19 04:00 03/11/19 04:00 03/11/19 04:00 Laboratory Results - last 24 hr 03/10/19 12:29: POC Glucose 193 H 03/10/19 17:39: POC Glucose 206 H 03/10/19 22:03: POC Glucose 149 H 03/11/19 05:36: POC Glucose 140 H I & O for Last 24 hours: Intake & Output 03/08/19 03/09/19 03/10/19 03/11/19 11:59 11:59 11:59 11:59 Intake Total 130 / 130 1736 / 1736 1867 / 1867 Output Total 900 / 900 350 / 350 1100 / 1100 Balance -770 / -770 1386 / 1386 767 / 767 Weight 112 lb 2 oz 112 lb 1.998 oz 122 lb 8 oz Microbiology Reports for the Last 24 Hours: Microbiology 03/08/19 15:35 Blood Blood Culture - Preliminary NO GROWTH AFTER 48 HOURS 03/08/19 15:25 Blood Blood Culture - Preliminary NO GROWTH AFTER 48 HOURS Radiology Reports for the Last 24 Hours: Abdominal x-ray - nothing acute - Constitutional no acute distress (sleeping) - *Routine Respiratory Exam Present: CTA bilaterally - *Routine Cardiovascular Exam Present: RRR - *Routine Abdominal Exam Present: soft, normoactive bowel sounds - *Routine Extremities Exam Absent: cyanosis, clubbing, edema Assessment and Plan (1) Hypertension Current visit: Yes Status: Acute Category: Medical Code(s): I10 - Essential (primary) hypertension (2) Cerebrovascular disease Current visit: Yes Status: Chronic Category: Medical Code(s): I67.9 - Cerebrovascular disease, unspecified (3) Somnolence Current visit: Yes Status: Acute Category: Medical Code(s): R40.0 - Somnolence (4) Dysphagia Current visit: Yes Status: Acute Category: Medical Code(s): R13.10 - Dysphagia, unspecified (5) Dysarthria Current visit: Yes Status: Acute Category: Medical Code(s): R47.1 - Dysarthria and anarthria (6) Depression Current visit: Yes Status: Chronic Category: Medical Code(s): F32.9 - Major depressive disorder, single episode, unspecified (7) Diabetes mellitus type 2 in obese Current visit: Yes Status: Chronic Category: Medical Code(s): E11.69 - Type 2 diabetes mellitus with other specified complication; E66.9 - Obesity, unspecified (8) Hyperlipidemia Current visit: Yes Status: Chronic Category: Medical Code(s): E78.5 - Hyperlipidemia, unspecified (9) Peripheral neuropathy Current visit: Yes Status: Chronic Category: Medical Code(s): G62.9 - Polyneuropathy, unspecified (10) Peripheral vascular disease Current visit: Yes Status: Chronic Category: Medical Code(s): I73.9 - Peripheral vascular disease, unspecified (11) Weakness generalized Current visit: Yes Status: Chronic Category: Medical Code(s): R53.1 - Weakness - Assessment and plan all Dx Assessment and Plan for all problems:: Physical therapy felt the patient would need long-term care for rehab following discharge. She is sleeping this morning and did not awake with exam. Will discuss further care with Dr. Cummings. <Aniket Cummings - Last Filed: 03/11/19 13:34> Internal Medicine - PN: Subj *Date: 03/11/19 *Time: 13:28 Exam Vital signs and Labs for Last 24 Hours: Temp Pulse Resp BP Pulse Ox 98.1 F 103 H 17 150/56 H 92 L 03/11/19 08:00 03/11/19 08:00 03/11/19 08:00 03/11/19 12:23 03/11/19 08:00 Laboratory Results - last 24 hr 03/10/19 17:39: POC Glucose 206 H 03/10/19 22:03: POC Glucose 149 H 03/11/19 05:36: POC Glucose 140 H 03/11/19 09:06: WBC 8.0, RBC 3.20 L, Hgb 10.1 L, Hct 32.0 L, MCV 100.1 H, MCH 31.5 H, MCHC 31.5 L, RDW 12.7, Plt Count 144, MPV 9.7, Neut % (Auto) 57.1, Lymph % (Auto) 32.6, [place] % (Auto) 8.5, Eos % (Auto) 1.4, Baso % (Auto) 0.4, Neut # (Auto) 4.6, Lymph # (Auto) 2.6, [place] # (Auto) 0.7, Eos # (Auto) 0.1, Baso # (Auto) 0.0 03/11/19 09:06: Sodium 141, Potassium 2.9 L* D, Chloride 104, Carbon Dioxide 30, Anion Gap 9.9, BUN 6 L D, Creatinine 0.55 D, Estimated Creat Clear 35, Estimated GFR 105, Est GFR ( Amer) 127 D, Glucose 120 H, Calcium 8.3 L, Total Bilirubin 0.6, AST 7 L, ALT 7 L, Alkaline Phosphatase 38 L, Total Protein 5.8 L, Albumin 2.8 L, Globulin 3.0, Albumin/Globulin Ratio 0.9 L 03/11/19 11:45: POC Glucose 157 H I & O for Last 24 hours: Intake & Output 03/09/19 03/10/19 03/11/19 03/12/19 11:59 11:59 11:59 11:59 Intake Total 130 / 130 1736 / 1736 1867 / 1867 100 / 100 Output Total 900 / 900 350 / 350 1100 / 1100 240 / 240 Balance -770 / -770 1386 / 1386 767 / 767 -140 / -140 Weight 112 lb 2 oz 112 lb 1.998 oz 122 lb 8 oz Microbiology Reports for the Last 24 Hours: Microbiology 03/08/19 15:35 Blood Blood Culture - Preliminary NO GROWTH AFTER 48 HOURS 03/08/19 15:25 Blood Blood Culture - Preliminary NO GROWTH AFTER 48 HOURS Assessment and Plan (1) Hypertension Current visit: Yes Status: Acute Category: Medical Code(s): I10 - Essential (primary) hypertension (2) Cerebrovascular disease Current visit: Yes Status: Chronic Category: Medical Code(s): I67.9 - Cerebrovascular disease, unspecified (3) Somnolence Current visit: Yes Status: Acute Category: Medical Code(s): R40.0 - Somnolence (4) Dysphagia Current visit: Yes Status: Acute Category: Medical Code(s): R13.10 - Dysphagia, unspecified (5) Dysarthria Current visit: Yes Status: Acute Category: Medical Code(s): R47.1 - Dysarthria and anarthria (6) Depression Current visit: Yes Status: Chronic Category: Medical Code(s): F32.9 - Major depressive disorder, single episode, unspecified (7) Diabetes mellitus type 2 in obese Current visit: Yes Status: Chronic Category: Medical Code(s): E11.69 - Type 2 diabetes mellitus with other specified complication; E66.9 - Obesity, unspecified (8) Hyperlipidemia Current visit: Yes Status: Chronic Category: Medical Code(s): E78.5 - Hyperlipidemia, unspecified (9) Peripheral neuropathy Current visit: Yes Status: Chronic Category: Medical Code(s): G62.9 - Polyneuropathy, unspecified (10) Peripheral vascular disease Current visit: Yes Status: Chronic Category: Medical Code(s): I73.9 - Peripheral vascular disease, unspecified (11) Weakness generalized Current visit: Yes Status: Chronic Category: Medical Code(s): R53.1 - Weakness (12) SunDown syndrome Current visit: Yes Status: Acute Category: Medical Code(s): F05 - Delirium due to known physiological condition (13) Acute urinary retention Current visit: Yes Status: Acute Category: Medical Code(s): R33.8 - Other retention of urine - Assessment and plan all Dx Assessment and Plan for all problems:: Events of last evening reviewed. She apparently went to sleep around 10 PM and woke around midnight planing of nausea and received a dose of Zofran. Shortly after this, she became quite agitated with kicking, biting, and scratching her caretakers. She eventually received a dose of IM Vistaril and fell asleep around 2 AM and slept until this morning. She is still sleeping at this time. Her mental status was more clear yesterday although not back to baseline. Her nighttime behaviors are consistent with sundowning but would also question if she is having a side effect from Zofran as she also received Zofran the night before last. This will be changed to Phenergan as needed. She will have repeat laboratory studies today. Abdominal x-rays yesterday were unremarkable. She still has a Guerrero in place. Because of her symptoms, she is not felt to be a candidate for personal care at [place] at this time. Skilled care bed is still not available. We will continue working on disposition with care management.
[2019-03-11 09:21] LABS: Basophils % 0.4 % (0.1-2.0); Eosinophils # 0.1 K/mm3 (0.0-0.4); Eosinophils % 1.4 % (0.1-12.0); Hemoglobin 10.1 g/dL (12.2-16.2); Lymphocytes # 2.6 K/mm3 (0.7-4.5); Lymphocytes % 32.6 % (10-50); Mean Corpuscular HGB Conc 31.5 g/dL (31.8-35.4); Mean Corpuscular Volume 100.1 fl (81-99); Mean Platelet Volume 9.7 fl (7.4-10.4); Monocytes # 0.7 K/mm3 (0.1-1.0); Monocytes % 8.5 % (1.7-9.3); Neutrophils # 4.6 K/mm3 (1.8-7.8); Neutrophils % 57.1 % (37.0-80.0); Platelet Count 144 K/mm3 (142-424); Red Cell Distribution Width 12.7 % (11.5-17.5)
[2019-03-11 09:27] LABS: Albumin Level 2.8 gm/dL (3.4-5.0); Albumin/Globulin Ratio 0.9 (1.1-1.8); Anion Gap 9.9 mEq/L (5-15); Bilirubin,Total 0.6 mg/dL (0.2-1.0); Calcium 8.3 mg/dL (8.5-10.1); Total Protein,Serum 5.8 gm/dL (6.4-8.2)
[2019-03-12 07:03] LABS: Anion Gap 10.2 mEq/L (5-15); Calcium 8.4 mg/dL (8.5-10.1)
--- NOTE | 2019-03-12 08:07 | Progress Note ---
Internal Medicine - PN: Subj *Date: 03/12/19 *Time: 08:04 Interval history: Patient had a good night last night according to her sitter. She states she slept throughout the night did not complain of any nausea. This morning the patient is awake but is not talking. Her sitter states she has not felt like eating. Exam Vital signs and Labs for Last 24 Hours: Temp Pulse Resp BP Pulse Ox 97.8 F 75 18 136/56 L 95 03/12/19 05:34 03/12/19 05:34 03/12/19 05:34 03/12/19 05:34 03/12/19 05:34 Laboratory Results - last 24 hr 03/11/19 09:06: WBC 8.0, RBC 3.20 L, Hgb 10.1 L, Hct 32.0 L, MCV 100.1 H, MCH 31.5 H, MCHC 31.5 L, RDW 12.7, Plt Count 144, MPV 9.7, Neut % (Auto) 57.1, Lymph % (Auto) 32.6, [place] % (Auto) 8.5, Eos % (Auto) 1.4, Baso % (Auto) 0.4, Neut # (Auto) 4.6, Lymph # (Auto) 2.6, [place] # (Auto) 0.7, Eos # (Auto) 0.1, Baso # (Auto) 0.0 03/11/19 09:06: Sodium 141, Potassium 2.9 L* D, Chloride 104, Carbon Dioxide 30, Anion Gap 9.9, BUN 6 L D, Creatinine 0.55 D, Estimated Creat Clear 35, Estimated GFR 105, Est GFR ( Amer) 127 D, Glucose 120 H, Calcium 8.3 L, Total Bilirubin 0.6, AST 7 L, ALT 7 L, Alkaline Phosphatase 38 L, Total Protein 5.8 L, Albumin 2.8 L, Globulin 3.0, Albumin/Globulin Ratio 0.9 L 03/11/19 11:45: POC Glucose 157 H 03/11/19 16:59: POC Glucose 212 H 03/11/19 19:47: POC Glucose 121 H 03/12/19 05:24: POC Glucose 127 H 03/12/19 06:30: Sodium 140, Potassium 3.2 L, Chloride 105, Carbon Dioxide 28, Anion Gap 10.2, BUN 7, Creatinine 0.50 L, Estimated Creat Clear 35, Estimated GFR 117, Est GFR ( Amer) 142, Glucose 139 H, Calcium 8.4 L I & O for Last 24 hours: Intake & Output 03/09/19 03/10/19 03/11/19 03/12/19 11:59 11:59 11:59 11:59 Intake Total 130 / 130 1736 / 1736 1867 / 1867 2502 / 2502 Output Total 900 / 900 350 / 350 1100 / 1100 890 / 890 Balance -770 / -770 1386 / 1386 767 / 767 1612 / 1612 Weight 112 lb 2 oz 112 lb 1.998 oz 122 lb 8 oz 122 lb 6 oz - Constitutional no acute distress - *Routine Respiratory Exam Present: CTA bilaterally - *Routine Cardiovascular Exam Present: RRR - *Routine Abdominal Exam Present: soft, normoactive bowel sounds. Absent: tenderness - *Routine Extremities Exam Absent: cyanosis, clubbing, edema - *Routine Skin Exam Present: warm. Absent: rash Assessment and Plan (1) Hypertension Current visit: Yes Status: Acute Category: Medical Code(s): I10 - Essential (primary) hypertension (2) Cerebrovascular disease Current visit: Yes Status: Chronic Category: Medical Code(s): I67.9 - Cerebrovascular disease, unspecified (3) Somnolence Current visit: Yes Status: Acute Category: Medical Code(s): R40.0 - Somnolence (4) Dysphagia Current visit: Yes Status: Acute Category: Medical Code(s): R13.10 - Dysphagia, unspecified (5) Dysarthria Current visit: Yes Status: Acute Category: Medical Code(s): R47.1 - Dysarthria and anarthria (6) Depression Current visit: Yes Status: Chronic Category: Medical Code(s): F32.9 - Major depressive disorder, single episode, unspecified (7) Diabetes mellitus type 2 in obese Current visit: Yes Status: Chronic Category: Medical Code(s): E11.69 - Type 2 diabetes mellitus with other specified complication; E66.9 - Obesity, unspecified (8) Hyperlipidemia Current visit: Yes Status: Chronic Category: Medical Code(s): E78.5 - Hyperlipidemia, unspecified (9) Peripheral neuropathy Current visit: Yes Status: Chronic Category: Medical Code(s): G62.9 - Polyneuropathy, unspecified (10) Peripheral vascular disease Current visit: Yes Status: Chronic Category: Medical Code(s): I73.9 - Peripheral vascular disease, unspecified (11) Weakness generalized Current visit: Yes Status: Chronic Category: Medical Code(s): R53.1 - Weakness (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 She did have a better night last night and rested well. Will discuss further care with Dr. Cummings.
--- NOTE | 2019-03-13 08:40 | Discharge Summary ---
General - General Admission date:: 03/08/19 HPI HPI: Ms. Nelson is an 88-year-old female with a history of type 2 diabetes mellitus, cerebral vascular disease, depression, peripheral vascular disease, hyperlipidemia, peptic ulcer disease, seizure disorder, and osteopenia who presented to [facility] emergency room with progressive weakness and inability to walk. She has 2 sitters stay with her and they report they have had to lift her from bed to chair and then push her sit/walker in order to move her around in her home. They have noticed a gradual decline in the last 2 weeks with change in her speech, difficulty with swallowing. and sleeping all of the time. She did vomit this a.m. but normally eats well. She is continent of urine and stool. With evaluation in the emergency room blood pressure was found to be elevated. Chest x-ray and CT of the head showed nothing acute. She was admitted for further evaluation and treatment with care management consultation. Hospital Course Hospital Course: She was admitted observation status to monitor her condition. As noted above her initial work-up was fairly unremarkable. However she was clearly quite weak more so than her baseline to the point that her caregivers when unable to continue to care for her at home. She had PT, OT and speech eval and was felt that she would need some inpatient rehab services in order to be able to return to her home. The second night she exhibited some sundowning behaviors which persisted during the hospitalization. Because of the change of mental status she did undergo an MRI of the brain which also did not show evidence of acute stroke. She continued to have sundowning behavior but this did improve somewhat with medication management and appropriate nursing care. She continues to have episodes of confusion at night but is less agitated and not combative. During the day she is fairly clear and cognizant. A Guerrero was inserted on admission because of her decreased mobility. This was removed the second day but thereafter she had difficulty voiding and the Guerrero was replaced. Urinalysis was unremarkable. After 2 more days the Guerrero was discontinued again and since then she has been voiding without difficulty. Her only other issue during admission, was elevated blood pressure. Norvasc has been added to her regimen and blood pressure is improving. She required potassium supplement during the admission and her potassium is improving. This will be monitored as an outpatient. Care management has been working on disposition. Initial plan was for her to go to personal care at [place] but because of her sundowning behaviors, it was not felt she was appropriate for personal care. A bed has been found available at [facility] and she is being discharged there today to continue with physical therapy, Occupational Therapy, and speech therapy. Objective Vital signs: Temp Pulse Resp BP Pulse Ox 98.0 F 68 17 152/71 H 96 03/13/19 07:25 03/13/19 07:25 03/13/19 07:25 03/13/19 07:25 03/13/19 07:42 Results Labs on day of discharge: Labs from last 24 hours 03/13/19 03/12/19 03/12/19 05:57 21:24 16:24 POC Glucose 164 H 152 H 177 H 03/12/19 11:47 POC Glucose 197 H Preliminary micro results at discharge 03/08/19 15:35 Blood Culture - Preliminary Blood NO GROWTH AFTER 48 HOURS 03/08/19 15:25 Blood Culture - Preliminary Blood NO GROWTH AFTER 48 HOURS DS: Diagnosis - Discharge Diagnosis (1) Hypertension Status: Acute (2) Cerebrovascular disease Status: Chronic (3) Somnolence Status: Acute (4) Dysphagia Status: Acute (5) Dysarthria Status: Acute (6) Depression Status: Chronic (7) Diabetes mellitus type 2 in obese Status: Chronic (8) Hyperlipidemia Status: Chronic (9) Peripheral neuropathy Status: Chronic (10) Peripheral vascular disease Status: Chronic (11) Weakness generalized Status: Chronic (12) SunDown syndrome Status: Acute (13) Acute urinary retention Status: Acute (14) Hypokalemia Status: Acute Discharge Plan - Patient Discharge Instructions ACTIVITY: Ambulate as tolerated (with assitance) DIET: diabetic diet Additional Instructions: Physical therapy, speech therapy, occupational therapy. Check BMP in 5 days Patient Instructions: Essential Hypertension, DI for Muscle Weakness - Follow up Plan Follow up with: Aniket Cummings MD [Primary Care Provider] - 1 week Disposition: [facility] Home Medications: Home Medications Medication Instructions Recorded Confirmed Type Aspirin [Adult Low Dose Aspirin EC] 81 mg PO DAILY 03/08/19 03/08/19 History Cholecalciferol (Vitamin D3) [D3 2,000 unit PO DAILY 03/08/19 03/08/19 History Dots] Clopidogrel Bisulfate [Clopidogrel 75 mg PO DAILY 03/08/19 03/08/19 History 75mg Tab] Cranberry 500 mg PO DAILY 03/08/19 03/08/19 History Duloxetine HCl 30 mg PO DAILY 03/08/19 03/08/19 History Levocetirizine Dihydrochloride 5 mg PO DAILY 03/08/19 03/08/19 History [Xyzal] Losartan Potassium 100 mg PO DAILY 03/08/19 03/08/19 History Metoprolol Succinate [Toprol XL 50 mg PO DAILY 03/08/19 03/08/19 History 50mg Tablet] Rosuvastatin Calcium 10 mg PO HS 03/08/19 03/09/19 History Saxagliptin HCl [Onglyza] 5 mg PO DAILY 03/08/19 03/08/19 History Vit A/Vit C/Vit E/Zinc/Copper 1 each PO BID 03/08/19 03/08/19 History [Preservision Areds Tablet] levETIRAcetam [Levetiracetam] 500 mg PO BID 03/08/19 03/08/19 History Acetaminophen [Tylenol 325mg 650 mg PO Q6HP PRN #30 tab 03/13/19 Rx Tablet] Amlodipine Besylate [Norvasc 5mg 5 mg PO DAILY #30 tab 03/13/19 Rx tablet] Gabapentin [Gabapentin 300mg Cap] 600 mg PO HS #60 cap 03/13/19 Rx Haloperidol [Haldol 5mg tablet] 2.5 mg PO HS #30 tab 03/13/19 Rx Metformin HCl [Glucophage 500mg 500 mg PO BIDWM #60 tab 03/13/19 Rx Tablet] Potassium Chloride [Klor-Con 10mEq 10 meq PO DAILY #30 tablet.er 03/13/19 Rx tab] hydrOXYzine pamoate [Vistaril 25mg 25 mg PO Q6HP PRN #30 cap 03/13/19 Rx capsule] Prescriptions/Medication Reconciliation: New Gabapentin [Gabapentin 300mg Cap] 600 mg PO HS #60 cap Haloperidol [Haldol 5mg tablet] 2.5 mg PO HS #30 tab Potassium Chloride [Klor-Con 10mEq tab] 10 meq PO DAILY #30 tablet.er Amlodipine Besylate [Norvasc 5mg tablet] 5 mg PO DAILY #30 tab hydrOXYzine pamoate [Vistaril 25mg capsule] 25 mg PO Q6HP PRN #30 cap PRN Reason: Agitation Metformin HCl [Glucophage 500mg Tablet] 500 mg PO BIDWM #60 tab Acetaminophen [Tylenol 325mg Tablet] 650 mg PO Q6HP PRN #30 tab PRN Reason: As Needed For Fever Or Pain Continued Rosuvastatin Calcium 10 mg PO HS Metoprolol Succinate [Toprol XL 50mg Tablet] 50 mg PO DAILY Losartan Potassium 100 mg PO DAILY levETIRAcetam [Levetiracetam] 500 mg PO BID Duloxetine HCl 30 mg PO DAILY Levocetirizine Dihydrochloride [Xyzal] 5 mg PO DAILY Aspirin [Adult Low Dose Aspirin EC] 81 mg PO DAILY Cranberry 500 mg PO DAILY Vit A/Vit C/Vit E/Zinc/Copper [Preservision Areds Tablet] 1 each PO BID Saxagliptin HCl [Onglyza] 5 mg PO DAILY Clopidogrel Bisulfate [Clopidogrel 75mg Tab] 75 mg PO DAILY Cholecalciferol (Vitamin D3) [D3 Dots] 2,000 unit PO DAILY Discontinued Glyburide/Metformin HCl [Glyburide-Metformin 5-500 mg] 2 tab PO BID Gabapentin [Gabapentin 300mg Cap] 600 mg PO DAILY Cyanocobalamin (Vitamin B-12) [B-12] 1,000 mcg PO DAILY Gabapentin [Gabapentin 300mg Cap] 900 mg PO HS - Problem Reconciliation Problems Reviewed?: Yes
== END 2019-03-13 10:00 ==
LOC: ER 14:03 → 2ND 14:03
PROVIDERS: ADMIT Family Medicine; ATTEND Family Medicine
CPT/HCPCS: 36415; 70450; 70551; 71010; 71045; 74019; 74020; 80048; 80053; 80061; 81001; 82962; 83605; 83735; 84100; 84443; 84484; 85025; 87040; 92610; 93005; 97116; 97162; 97166; 97530; 97535; 99285; G0378; J2405